=== PATIENT | female | born 1965 | race Caucasian/White ===

== ENCOUNTER 2023-09-07 03:27 | Emergency (ER) | payer BC, OTHER ==
[~2023-09-07] VITALS: Ht 182.9 cm; Wt 85.0 kg
[2023-09-07 04:17] VITALS: BP 110/80; PULSE 66; RESP 18; TEMP 98.4; O2SAT 98
[2023-09-07] MEDS ORDERED: FLUORESCEIN SOD OPTH TEST STRIP RIGHTEYE ONE (04:45)
[2023-09-07] MEDS ORDERED: TETRACAINE HCL 0.5% OPTH(EYE) SOLN 4ML RIGHTEYE ONE (04:45)
[2023-09-07] MEDS ORDERED: MOXI0.5D OP (05:29)
[2023-09-07] MEDS ORDERED: IBUP1TAB4 PO (05:29)
== END 2023-09-07 05:53 | disposition home or self-care (01) ==
LOC: ER 03:27
DX: H16.001 Unspecified corneal ulcer, right eye (principal)